=== PATIENT | female | born 1970 | race African-American/Black ===

== ENCOUNTER → 2019-03-21 | Day surgery (SDC) | payer OTHER | LOC: JMAMMO-SUR 11:57 ==

== ENCOUNTER 2019-08-12 13:12 | Emergency (ER) | payer OTHER ==
[2019-08-12 13:39] VITALS: BP 127/74; PULSE 72; TEMP 98.1; BMI 43.4
[2019-08-12] MEDS ORDERED: METHOCARBAMOL 500 MG TABLET PO ONE (14:22)
[2019-08-12] MEDS ORDERED: KETOROLAC TROMETHAMINE 30 MG/1 ML VIAL IM ONE (14:22)
[2019-08-12] MEDS ORDERED: KETOROLAC TROMETHAMINE 30 MG/1 ML VIAL ONE (14:22)
[2019-08-12] MEDS ORDERED: METHOCARBAMOL 500 MG TABLET ONE (14:24)
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
== END 2019-08-12 14:57 | disposition home or self-care (01) ==
LOC: JERFT 13:12
CPT/HCPCS: 99281-25

== ENCOUNTER 2020-05-28 10:40 | Emergency (ER) | payer OTHER ==
[2020-05-28 10:54] VITALS: BMI 44.6
[2020-05-28] MEDS ORDERED: SODIUM CHLORIDE 1,000 ML IV STA (11:39)
[2020-05-28 12:29] LABS: BASO % 0.7 % (0-2.0); EOS % 1.4 % (0-4.5); HEMATOCRIT 38.8 % (32.4-45.2); HEMOGLOBIN 12.7 GM/dL (10.7-15.3); LYMPH % 37.3 % (8-40); MCH 26.8 pg (25.7-33.7); MCHC 32.8 g/dl (32.0-36.0); MEAN CELL VOLUME 81.9 fl (80-96); MEAN PLT VOLUME 7.9 fl (7.5-11.1); MONO % 8.6 % (3.8-10.2); PLATELET COUNT 383 K/MM3 (134-434); RBC 4.73 M/mm3 (3.60-5.2); RDW 17.1 % (11.6-15.6); WHITE BLOOD COUNT 7.5 K/mm3 (4.0-10.0)
[2020-05-28 12:33] LABS: EPI CELLS 3 /uL (0-25.1); HYALINE CASTS 0 /uL (0-3.1); PH,URINE 5.5 (5.0-8.0); URINE APPEARANCE CLEAR; URINE BACTERIA 23 /uL (0-1359); URINE BILIRUBIN NEGATIVE (NEGATIVE); URINE COLOR YELLOW; URINE GLUCOSE (UA) NEGATIVE (NEGATIVE); URINE KETONE TRACE (NEGATIVE); URINE LEUK ESTERASE NEGATIVE (NEGATIVE); URINE NITRITE NEGATIVE (NEGATIVE); URINE PROTEIN NEGATIVE (NEGATIVE); URINE RBC 244 /uL (0-23.9); URINE UROBILINOGEN 0.2 mg/dL (0.2-1.0); URINE WBC 3 /uL (0-25.8)
[2020-05-28 12:37] LABS: INR 0.92 (0.83-1.09); PROTHROMBIN TIME (PATIENT) 10.9 SEC (9.7-13.0)
[2020-05-28 12:39] LABS: ACTIVATED PTT 42.3 SECONDS (25.2-36.5)
--- NOTE | 2020-05-28 12:40 | PDOC ---
History of Present Illness - General History Source: Patient Exam Limitations: Clinical Condition - History of Present Illness Travel History: No Initial Comments: 05/28/20 12:36 Patient with no significant past medical history present with complaint of vaginal bleeding since overnight. Patient report having unprotected sex 4 m onths ago while on vacation in [place] without using condoms and came back a month after with no menstrual period. Patient reported going to [facility] who did a test and came back positive but had a low beta-hCG of 1300 which was trending down over a month ago. Patient reports seeing her [facility] 3 weeks ago with better almost negative. Patient reports she was told by her [facility] she should be having her menstrual period around this time but started having severe vaginal bleeding overnight soaking 4 pads with cramping lower abdominal pain. Pt report calling her [facility] who advised her to come to ED. Patient is not sure if the bleeding is from her menstrual or from . Denies nausea, vomiting, fever, chills, dizziness, palpitations. Denies any other symptoms <Rory Green - Last Filed: 05/28/20 13:23> <Ramone Aden - Last Filed: 05/28/20 15:44> - General Chief Complaint: Vaginal Bleeding Stated Complaint: VAGINAL BLEEDING/PAIN Time Seen by Provider: 05/28/20 11:14 Past History - Medical History COPD: No - Reproductive History Is Patient Now?: No - Psycho-Social/Smoking History Smoking History: Never smoked - Substance Abuse Hx (Audit-C & DAST Scrn) How often the patient has a drink containing alcohol: Never Score: In Men: 4 or > Positive; In Women: 3 or > Positive: 0 Screen Result (Pos requires Nsg. Audit-10AR): Negative In the last yr the pt used illegal drug/Rx for NonMed reason: No Score: Yes response is considered Positive: 0 Screen Result (Positive result requires Nsg. DAST-10): Negative <Rory Green - Last Filed: 05/28/20 13:23> <Ramone Aden - Last Filed: 05/28/20 15:44> - Medical History Allergies/Adverse Reactions: Allergies Allergy/AdvReac Type Severity Reaction Status Date / Time No Known Allergies Allergy Verified 05/28/20 10:43 Home Medications: Ambulatory Orders Ibuprofen [Motrin -] 600 mg PO TID PRN 08/12/19 Methocarbamol [Robaxin -] 500 mg PO BID #14 tablet 08/12/19 Methylprednisolone [Medrol Dose Ayo] 4 mg PO ASDIR #21 tablet 08/12/19 Review of Systems - Review of Systems Able to Perform ROS?: Yes Is the patient limited Beninese proficient: No Constitutional: No: Chills, Fever, Malaise HEENTM: No: Symptoms Reported, See HPI, Eye Pain, Blurred Vision, Tearing, Recent change in vision, Double Vision, Cataracts, Ear Pain, Ocular Prothesis, Ear Discharge, Nose Pain, Nose Congestion, Tinnitus, Nose Bleeding, Hearing Loss, Throat Pain, Throat Swelling, Mouth Pain, Dental Problems, Difficulty Swallowing, Mouth Swelling, Other Respiratory: No: Symptoms reported, See HPI, Cough, Orthopnea, Shortness of Breath, SOB with Exertion, SOB at Rest, Stridor, Wheezing, Productive cough, Hemoptysis, Other Cardiac (ROS): No: Symptoms Reported, See HPI, Chest Pain, Edema, Irregular Heart Rate, Lightheadedness, Palpitations, Syncope, Chest Tightness, Other ABD/GI: Yes: Symptoms Reported, See HPI, Abdominal cramping (lower abd cramping pain). No: Blood Streaked Bowels, Constipated, Diarrhea, Nausea, Vomiting : Yes: Symptoms Reported, See HPI, Other (vaginal bleeding). No: Burning, Dysuria, Discharge, Frequency, Hematuria, Urgency Musculoskeletal: No: Symptoms Reported Integumentary: No: Symptoms Reported Neurological: No: Symptoms reported, Headache, Weakness, Dizziness All Other Systems: Reviewed and Negative <Rory Green - Last Filed: 05/28/20 13:23> *Physical Exam - Vital Signs Last Vital Signs Temp Pulse Resp BP Pulse Ox 97.7 F 89 18 123/64 99 05/28/20 10:43 05/28/20 10:43 05/28/20 10:43 05/28/20 10:43 05/28/20 10:43 - Physical Exam General Appearance: Yes: Nourished, Appropriately Dressed. No: Apparent Distress HEENT: positive: Normal ENT Inspection Respiratory/Chest: positive: Lungs Clear, Normal Breath Sounds. negative: Chest Tender, Respiratory Distress, Accessory Muscle Use Cardiovascular: positive: Regular Rhythm, Regular Rate Female Pelvic Exam: positive: normal external exam, cervical os closed, vaginal bleeding (scant amount of dark blood in vaginal vault with no blood pooling in vaginal vault. Cervical os closed. No active vaginal bleeding. No abdominal tenderness exam.). negative: adnexal tenderness Gastrointestinal/Abdominal: positive: Normal Bowel Sounds, Flat. negative: Tender, Guarding, Rebound, Tenderness Musculoskeletal: positive: Normal Inspection. negative: CVA Tenderness Extremity: positive: Normal Capillary Refill, Normal Inspection, Normal Range of Motion Integumentary: positive: Normal Color Neurologic: positive: Fully Oriented, Alert, Normal Mood/Affect, Normal Response, Motor Strength 5/5 <Rory Green Jason - Last Filed: 05/28/20 13:23> - Vital Signs Last Vital Signs Temp Pulse Resp BP Pulse Ox 98.0 F 86 19 137/69 99 05/28/20 13:00 05/28/20 13:00 05/28/20 13:00 05/28/20 13:00 05/28/20 10:43 <Ramone Aden - Last Filed: 05/28/20 15:44> ED Treatment Course - LABORATORY CBC & Chemistry Diagram: 05/28/20 12:00 - ADDITIONAL ORDERS Additional order review: Laboratory Results 05/28/20 12:00 Urine Color Yellow Urine Appearance Clear Urine pH 5.[address] [place] 1.013 Urine Protein Negative Urine Glucose (UA) Negative Urine Ketones Trace H Urine Blood 3+ H Urine Nitrite Negative Urine Bilirubin Negative Urine Urobilinogen 0.2 Ur Leukocyte Esterase Negative Urine WBC (Auto) 3 Urine RBC (Auto) 244 Urine Casts (Auto) 0 U Epithel Cells (Auto) 3 Urine Bacteria (Auto) 23 - RADIOLOGY Radiology Studies Ordered: Category Date Time Status TRANSVAGINAL US PREG [US] Stat Ultrasound 05/28/20 11:39 Ordered <Rory Green Jason - Last Filed: 05/28/20 13:23> - LABORATORY CBC & Chemistry Diagram: 05/28/20 12:00 - ADDITIONAL ORDERS Additional order review: Laboratory Results 05/28/20 05/28/20 05/28/20 12:00 12:00 12:00 PT with INR INR PTT (Actin FS) Beta HCG, Quant 13.8 Urine Color Yellow Urine Appearance Clear Urine pH 5.[address] [address] [place] 1.013 Urine Protein Negative Urine Glucose (UA) Negative Urine Ketones Trace H Urine Blood 3+ H Urine Nitrite Negative Urine Bilirubin Negative Urine Urobilinogen 0.2 Ur Leukocyte Esterase Negative Urine WBC (Auto) 3 Urine RBC (Auto) 244 Urine Casts (Auto) 0 U Epithel Cells (Auto) 3 Urine Bacteria (Auto) 23 Blood Type O POSITIVE Antibody Screen Negative 05/28/20 12:00 PT with INR 10.90 INR 0.92 PTT (Actin FS) 42.3 H Beta HCG, Quant Urine Color Urine Appearance Urine pH Ur Specific [place] Urine Protein Urine Glucose (UA) Urine Ketones Urine Blood Urine Nitrite Urine Bilirubin Urine Urobilinogen Ur Leukocyte Esterase Urine WBC (Auto) Urine RBC (Auto) Urine Casts (Auto) U Epithel Cells (Auto) Urine Bacteria (Auto) Blood Type Antibody Screen 05/28/20 12:00 RBC 4.73 MCV 81.9 MCHC 32.8 RDW 17.1 H MPV 7.9 Neutrophils % 52.0 Lymphocytes % 37.3 Monocytes % 8.6 Eosinophils % 1.4 Basophils % 0.7 - Medications Given in the ED: ED Medications Discontinued Medications Generic Name Dose Route Start Last Admin Trade Name Freq PRN Reason Stop Dose Admin Sodium Chloride 1,000 mls @ 1,000 mls/hr 05/28/20 11:39 05/28/20 12:30 Normal Saline - IV 05/28/20 12:38 Not Given ASDIR STA <Ramone Aden - Last Filed: 05/28/20 15:44> Medical Decision Making - Medical Decision Making 05/28/20 12:38 Patient with no significant past medical history present with complaint of vaginal bleeding since overnight. Patient report having unprotected sex 4 months ago while on vacation in [place] without using condoms and came back a month after with no menstrual period. Patient reported going to [facility] who did a test and came back positive but had a low beta-hCG of 1300 which was trending down over a month ago. Patient reports seeing her [facility] 3 weeks ago with better almost negative. Patient reports she was told by her [facility] she should be having her menstrual period around this time but started having severe vaginal bleeding overnight soaking 4 pads with cramping lower abdominal pain. Pt report calling her [facility] who advised her to come to ED. Patient is not sure if the bleeding is from her menstrual or from . Denies nausea, vomiting, fever, chills, dizziness, palpitations. Denies any other symptoms Exam significant for scant amount of dark blood in vaginal vault with no blood pooling in vaginal vault. Cervical os closed. No active vaginal bleeding. No abdominal tenderness exam. Symptoms likely spontaneous versus normal menstrual. CBC, beta hCG, type and screen lab ordered. Transvaginal ultrasound ordered to rule out acute abnormality. Treat based on lab and imaging results. Patient declined IV hydration and meds 05/28/20 13:08 Beta-hCG 13 which is a significant decrease from 1303 weeks ago from patient's [facility] office. Patient agrees not to do ultrasound as not needed at this time and was advised by her [facility] to follow-up right after the ED visit. Will hold off vaginal ultrasound as beta hcg is almost negative and patient symptoms li keith spontaneous complete AB. RH : O-pos. Patient stable for discharge with follow-up with her [facility] <Rory Green - Last Filed: 05/28/20 13:23> - Medical Decision Making 05/28/20 15:44 I reviewed the case of the mid-level practitioner and was available for consultation while in the emergency department <Ramone Aden - Last Filed: 05/28/20 15:44> Discharge - Discharge Information Problems reviewed: Yes - Admission No <Rory Green - Last Filed: 05/28/20 13:23> <Ramone Aden - Last Filed: 05/28/20 15:44> - Discharge Information Clinical Impression/Diagnosis: Spon w/o complication Condition: Stable Disposition: HOME - Follow up/Referral Referrals: Monse Jose [Primary Care Provider] - - Patient Discharge Instructions Patient Printed Discharge Instructions: DI for Miscarriage Additional Instructions: Your hormone level is 13 today which has decreased a significant for 1300 weeks ago. You most likely have complete at this time. Follow- up with your [facility] as discussed - Post Discharge Activity
[2020-05-28 13:20] VITALS: BP 137/69; PULSE 86; TEMP 98
== END 2020-05-28 13:20 | disposition home or self-care (01) ==
LOC: JER 10:40
DX: O03.9 Complete or unspecified spontaneous abortion without complication (principal)
CPT/HCPCS: 36415; 81003; 84702; 85025; 85610; 85730; 86850; 86900; 86901; 87086; 99284-25

== ENCOUNTER 2020-10-05 08:54 | Day surgery (SDC) | payer OTHER ==
[2020-10-03 13:57] VITALS: BMI 44.6
[~2020-10-05 08:54] MED LIST: BUPIVACAINE HCL/PF 0.25% (2.5MG/ML) 10 ML VIAL IJ ONE
[2020-10-05] MEDS ORDERED: ONDANSETRON 4 MG/2 ML VIAL IVPUSH PRN (11:30)
[2020-10-05] MEDS ORDERED: oxyCODONE HCL 5 MG TABLET PO PRN (11:30)
[2020-10-05] MEDS ORDERED: LACTATED RINGERS SOLUTION 1,000 ML IV SCH (11:30)
[2020-10-05] MEDS ORDERED: PROPOFOL 20 ML ONE (11:37)
[2020-10-05] MEDS ORDERED: MIDAZOLAM HCL 2 MG/2 ML SINGLE DOSE VIAL ONE (11:37)
[2020-10-05] MEDS ORDERED: ceFAZolin SODIUM 1 GM VIAL ONE (12:00)
[2020-10-05] MEDS ORDERED: DEXAMETHASONE SOD PHOSPHATE 4 MG/1 ML VIAL ONE ×2 (12:02→12:04)
[2020-10-05] MEDS ORDERED: ONDANSETRON 4 MG/2 ML VIAL ONE ×3 (12:02→12:57)
[2020-10-05] MEDS ORDERED: BUPIVACAINE HCL/PF 2.5 MG/ML - 30 ML VIAL IJ ONE (12:09)
[2020-10-05] MEDS ORDERED: KETOROLAC TROMETHAMINE 30 MG/1 ML VIAL ONE (12:33)
[2020-10-05] MEDS ORDERED: oxyCODONE HCL 5 MG TABLET PO ONE (13:45)
[2020-10-05] MEDS ORDERED: oxyCODONE HCL 5 MG TABLET ONE (13:46)
[2020-10-05 14:02] VITALS: TEMP 97.8
[2020-10-05 14:53] VITALS: BP 130/84; PULSE 85
== END 2020-10-05 14:35 | disposition home or self-care (01) ==
LOC: FASU 08:54
PROVIDERS: ATTEND Orthopaedic Surgery
PROC: 0SBC4ZZ Excision of Right Knee Joint, Percutaneous Endoscopic Approach (ICD-10-PCS; 2020-10-05)
PROC: 0SBC4ZZ Excision of Right Knee Joint, Percutaneous Endoscopic Approach (ICD-10-PCS; 2020-10-05)
PROC: 0SBC4ZZ Excision of Right Knee Joint, Percutaneous Endoscopic Approach (ICD-10-PCS; 2020-10-05)
PROC: 0SBC4ZZ Excision of Right Knee Joint, Percutaneous Endoscopic Approach (ICD-10-PCS; principal; 2020-10-05 12:10)
DX: S83.281A Other tear of lateral meniscus, current injury, right knee, initial encounter (principal); S83.241A Other tear of medial meniscus, current injury, right knee, initial encounter; M65.861 Other synovitis and tenosynovitis, right lower leg; M94.8X6 Other specified disorders of cartilage, lower leg; X58.XXXA Exposure to other specified factors, initial encounter; Y93.9 Activity, unspecified; Y92.9 Unspecified place or not applicable; Y99.9 Unspecified external cause status
CPT/HCPCS: 81025; 88304-TC; 94760

== ENCOUNTER 2023-01-02 06:47 | Day surgery (SDC) | payer OTHER ==
[2022-12-09 12:12] VITALS: BMI 44.6
[2023-01-02] MEDS ORDERED: LIDOCAINE HCL/PF 2% SDV 5ML VIAL ONE (09:39)
[2023-01-02] MEDS ORDERED: MIDAZOLAM HCL 2 MG/2 ML SINGLE DOSE VIAL ONE (09:40)
[2023-01-02] MEDS ORDERED: PROPOFOL 20 ML ONE (09:40)
[2023-01-02] MEDS ORDERED: BUPIVACAINE HCL/PF 2.5 MG/ML - 30 ML VIAL IJ ONE (09:50)
[2023-01-02] MEDS ORDERED: EPINEPHrine 1:1,000 1,000 MCG/ML ML ONE (09:50)
[2023-01-02] MEDS ORDERED: KETOROLAC TROMETHAMINE 30 MG/1 ML VIAL ONE (10:09)
[2023-01-02] MEDS ORDERED: ONDANSETRON 4 MG/2 ML VIAL ONE ×2 (10:09→11:16)
[2023-01-02] MEDS ORDERED: ceFAZolin SODIUM 1 GM VIAL ONE (10:09)
[2023-01-02] MEDS ORDERED: DEXAMETHASONE SOD PHOSPHATE 4 MG/1 ML VIAL ONE (10:09)
[2023-01-02] MEDS ORDERED: oxyCODONE HCL 5 MG TABLET PO PRN ×2 (10:54)
[2023-01-02] MEDS ORDERED: ACETAMINOPHEN 1000 MG/100 ML BAG IVPB ONE (10:54)
[2023-01-02] MEDS ORDERED: ONDANSETRON 4 MG/2 ML VIAL IVPUSH PRN (10:54)
[2023-01-02] MEDS ORDERED: PROMETHAZINE HCL 25 MG/1 ML VIAL IVPB PRN (10:54)
[2023-01-02] MEDS ORDERED: LACTATED RINGERS SOLUTION 1,000 ML IV SCH (11:00)
[2023-01-02] MEDS ORDERED: ACETAMINOPHEN INJECTION 100 ML IVPB ONE (11:01)
[2023-01-02] MEDS ORDERED: FENTANYL CITRATE/PF 50 MCG/ML VIAL ONE ×3 (11:01→11:42)
[2023-01-02 12:25] VITALS: RESP 18; TEMP 97.8
[2023-01-02] MEDS ORDERED: oxyCODONE HCL 5 MG TABLET ONE (12:27)
[2023-01-02 13:03] VITALS: BP 138/71; PULSE 75
== END 2023-01-02 13:20 | disposition home or self-care (01) ==
LOC: FASU 06:47
PROVIDERS: ATTEND Orthopaedic Surgery
PROC: 0SBD4ZZ Excision of Left Knee Joint, Percutaneous Endoscopic Approach (ICD-10-PCS; 2023-01-02)
PROC: 0SBD4ZZ Excision of Left Knee Joint, Percutaneous Endoscopic Approach (ICD-10-PCS; principal; 2023-01-02 10:19)
DX: S83.242A Other tear of medial meniscus, current injury, left knee, initial encounter (principal); S83.282A Other tear of lateral meniscus, current injury, left knee, initial encounter; S83.8X2A Sprain of other specified parts of left knee, initial encounter; M65.862 Other synovitis and tenosynovitis, left lower leg; X58.XXXA Exposure to other specified factors, initial encounter; Y93.9 Activity, unspecified; Y92.9 Unspecified place or not applicable
CPT/HCPCS: 81025; 94760